=== PATIENT | male | born 1935 | race Caucasian/White ===

== ENCOUNTER 2016-07-22 23:28 | Inpatient (IN) | payer MEDICARE ==
[~2016-07-22] VITALS: Ht 182.9 cm; Wt 72.1 kg
[2016-07-23] MEDS ORDERED: DILAUDID 1 MG/ML AMP ONE (00:02)
[2016-07-23] MEDS ORDERED: MORPHINE 4 MG/ML SYR IV PRN (04:40)
[2016-07-23] MEDS ORDERED: MORPHINE 2 MG/ML SYR IV PRN (04:40)
[2016-07-23 04:45] VITALS: BP_SYST 137; RESP 18; TEMP 98.1; Ht 182.9 cm; Wt 72.1 kg
[2016-07-23] MEDS ORDERED: LEVOTHYROXINE 0.1 MG TAB PO SCH (07:00)
[2016-07-23 07:20] VITALS: BP_SYST 141; RESP 16; TEMP 97.7
[2016-07-23 12:09] VITALS: BP_SYST 131; RESP 16; TEMP 98.1
[2016-07-23] MEDS ORDERED: BISACODYL 10 MG SUPP RECTAL PRN (14:20)
[2016-07-23] MEDS ORDERED: POLYETHYLENE GLYCOL 17 GM PACKET PO PRN (14:20)
[2016-07-23] MEDS ORDERED: MAG HYDROX 30 ML UDC PO PRN (14:20)
[2016-07-23] MEDS ORDERED: ACETAMINOPHEN 650 MG/20.3 ML UDC PO PRN (14:20)
[2016-07-23] MEDS ORDERED: METOPROLOL XL 25 MG TAB PO SCH (14:20)
[2016-07-23] MEDS ORDERED: KCL CR 10 MEQ CAP PO ONE (14:20)
[2016-07-23 15:10] VITALS: BP_SYST 114; RESP 16; TEMP 97.6
[2016-07-23] MEDS: DIGOXIN 0.125 MG TAB PO SCH (16:08)
[2016-07-23] MEDS: SACCHA BOULARDII 250MG CAP PO SCH (16:08)
[2016-07-23] MEDS: Furosemide 40 MG TAB PO SCH ×2 (16:09→20:51)
[2016-07-23] MEDS: POLYETHYLENE GLYCOL 17 GM PACKET PO SCH (18:04)
[2016-07-23 20:19] VITALS: BP_SYST 115; RESP 18; TEMP 98.1
[2016-07-23] MEDS: KCL CR 10 MEQ TAB PO SCH (20:51)
[2016-07-23] MEDS: DOCUSATE SOD 100 MG CAP PO SCH (20:52)
[2016-07-23] MEDS: FAMOTIDINE 20 MG TAB PO SCH (20:52)
[2016-07-23] MEDS: METOPROLOL XL 25 MG TAB PO SCH (20:53)
[2016-07-23] MEDS ORDERED: METOPROLOL XL 50 MG TAB PO SCH (21:00)
[2016-07-23 23:09] VITALS: BP_SYST 118; RESP 18; TEMP 97.6
[2016-07-24 03:34] VITALS: BP_SYST 118; RESP 16; TEMP 97.6
[2016-07-24] MEDS: POLYETHYLENE GLYCOL 17 GM PACKET PO SCH (08:03)
[2016-07-24] MEDS: SACCHA BOULARDII 250MG CAP PO SCH (08:03)
[2016-07-24] MEDS: DOCUSATE SOD 100 MG CAP PO SCH ×2 (08:03→20:48)
[2016-07-24] MEDS: TAMSULOSIN 0.4 MG CAP PO SCH (08:03)
[2016-07-24] MEDS: Furosemide 40 MG TAB PO SCH ×2 (08:04→20:49)
[2016-07-24] MEDS: KCL CR 10 MEQ TAB PO SCH ×2 (08:04→20:48)
[2016-07-24] MEDS: FAMOTIDINE 20 MG TAB PO SCH ×2 (08:04→20:48)
[2016-07-24] MEDS: DIGOXIN 0.125 MG TAB PO SCH (08:07)
[2016-07-24 08:30] VITALS: BP_SYST 107; RESP 16; TEMP 97.8
[2016-07-24] MEDS: METOPROLOL XL 25 MG TAB PO SCH ×2 (09:00→20:49)
[2016-07-24] MEDS ORDERED: METOPROLOL XL 50 MG TAB PO SCH (09:00)
[2016-07-24 11:25] VITALS: BP_SYST 116; RESP 16; TEMP 97.8
[2016-07-24 11:27] VITALS: BP_SYST 116; RESP 16; TEMP 97.8
[2016-07-24 15:37] VITALS: BP_SYST 108; RESP 16; TEMP 98
[2016-07-24 18:53] VITALS: BP_SYST 112; RESP 16; TEMP 97.9
[2016-07-25] VITALS (7 sets, daily range): BP systolic 106–123; RESP 16–20; TEMP 97–98.9
[2016-07-25] MEDS: TAMSULOSIN 0.4 MG CAP PO SCH (08:37)
[2016-07-25] MEDS: DIGOXIN 0.125 MG TAB PO SCH (08:38)
[2016-07-25] MEDS: Furosemide 40 MG TAB PO SCH ×2 (08:38→21:19)
[2016-07-25] MEDS: METOPROLOL XL 25 MG TAB PO SCH ×2 (08:39→21:19)
[2016-07-25] MEDS: POLYETHYLENE GLYCOL 17 GM PACKET PO SCH (08:39)
[2016-07-25] MEDS: KCL CR 10 MEQ TAB PO SCH ×2 (08:39→21:19)
[2016-07-25] MEDS: SACCHA BOULARDII 250MG CAP PO SCH (08:39)
[2016-07-25] MEDS: FAMOTIDINE 20 MG TAB PO SCH ×2 (08:39→21:21)
[2016-07-25] MEDS: DOCUSATE SOD 100 MG CAP PO SCH ×2 (08:39→21:18)
[2016-07-26 04:30] VITALS: BP_SYST 120; RESP 18; TEMP 97.5
[2016-07-26 08:23] VITALS: BP_SYST 118; RESP 16; TEMP 97.5
[2016-07-26] MEDS: POLYETHYLENE GLYCOL 17 GM PACKET PO SCH (08:59)
[2016-07-26] MEDS: Furosemide 40 MG TAB PO SCH ×2 (09:00→20:26)
[2016-07-26] MEDS: KCL CR 20 MEQ TAB PO SCH ×2 (09:00→20:27)
[2016-07-26] MEDS: DOCUSATE SOD 100 MG CAP PO SCH ×2 (09:01→20:27)
[2016-07-26] MEDS: TAMSULOSIN 0.4 MG CAP PO SCH (09:02)
[2016-07-26] MEDS: METOPROLOL XL 50 MG TAB PO SCH ×2 (09:02→20:26)
[2016-07-26] MEDS: DIGOXIN 0.125 MG TAB PO SCH (09:02)
[2016-07-26] MEDS: FAMOTIDINE 20 MG TAB PO SCH ×2 (09:03→20:27)
[2016-07-26] MEDS: SACCHA BOULARDII 250MG CAP PO SCH (09:03)
[2016-07-26 12:40] VITALS: BP_SYST 122; RESP 16; TEMP 97.2
[2016-07-26 15:45] VITALS: BP_SYST 113; RESP 16; TEMP 97.5
[2016-07-26 19:21] VITALS: BP_SYST 109; RESP 16; TEMP 98.1
[2016-07-26 22:59] VITALS: BP_SYST 109; RESP 18; TEMP 98
[2016-07-27] MEDS ORDERED: SALINE FLUSH 10 ML FLUSH PRN (00:15)
[2016-07-27 03:06] VITALS: BP_SYST 119; RESP 16; TEMP 97.3
[2016-07-27] MEDS: SODIUM CHLORIDE 0.9% FLUSH BAG 500 ML IV SCH (05:57)
[2016-07-27] MEDS: SALINE FLUSH 10 ML FLUSH SCH ×2 (08:00→21:08)
[2016-07-27 08:21] VITALS: BP_SYST 130; RESP 20; TEMP 97.9
[2016-07-27] MEDS: SACCHA BOULARDII 250MG CAP PO SCH (08:55)
[2016-07-27] MEDS: FAMOTIDINE 20 MG TAB PO SCH ×2 (08:55→21:07)
[2016-07-27] MEDS: DIGOXIN 0.125 MG TAB PO SCH (08:55)
[2016-07-27] MEDS: KCL CR 20 MEQ TAB PO SCH ×2 (08:56→21:08)
[2016-07-27] MEDS: DOCUSATE SOD 100 MG CAP PO SCH ×2 (08:56→21:08)
[2016-07-27] MEDS: METOPROLOL XL 50 MG TAB PO SCH ×2 (08:56→21:07)
[2016-07-27] MEDS: TAMSULOSIN 0.4 MG CAP PO SCH (08:56)
[2016-07-27] MEDS: Furosemide 40 MG TAB PO SCH ×2 (08:56→21:08)
[2016-07-27] MEDS: POLYETHYLENE GLYCOL 17 GM PACKET PO SCH (08:58)
[2016-07-27 12:02] VITALS: BP_SYST 136; RESP 20; TEMP 97.3
[2016-07-27 15:35] VITALS: BP_SYST 120; RESP 16; TEMP 97.3
[2016-07-27 19:56] VITALS: BP_SYST 118; RESP 16; TEMP 97.7
[2016-07-27 23:35] VITALS: BP_SYST 125; RESP 16; TEMP 97.2
[2016-07-28 03:19] VITALS: BP_SYST 117; RESP 16; TEMP 97.2
[2016-07-28] MEDS: SODIUM CHLORIDE 0.9% FLUSH BAG 500 ML IV SCH (06:00)
[2016-07-28 07:15] VITALS: BP_SYST 139; RESP 16; TEMP 97.8
[2016-07-28] MEDS: POLYETHYLENE GLYCOL 17 GM PACKET PO SCH (08:03)
[2016-07-28] MEDS: DOCUSATE SOD 100 MG CAP PO SCH ×2 (08:03→21:41)
[2016-07-28] MEDS: METOPROLOL XL 50 MG TAB PO SCH ×2 (08:03→21:40)
[2016-07-28] MEDS: TAMSULOSIN 0.4 MG CAP PO SCH (08:04)
[2016-07-28] MEDS: DIGOXIN 0.125 MG TAB PO SCH (08:04)
[2016-07-28] MEDS: KCL CR 20 MEQ TAB PO SCH ×2 (08:04→21:40)
[2016-07-28] MEDS: FAMOTIDINE 20 MG TAB PO SCH ×2 (08:04→21:40)
[2016-07-28] MEDS: SACCHA BOULARDII 250MG CAP PO SCH (08:04)
[2016-07-28] MEDS: Furosemide 40 MG TAB PO SCH ×2 (08:09→21:40)
[2016-07-28] MEDS: SALINE FLUSH 10 ML FLUSH SCH ×2 (08:10→21:38)
[2016-07-28 11:37] VITALS: BP_SYST 102; RESP 16; TEMP 97.5
[2016-07-28 19:53] VITALS: BP_SYST 116; RESP 20; TEMP 97.7
[2016-07-28 22:45] VITALS: BP_SYST 134; RESP 22; TEMP 97.6
[2016-07-29 04:35] VITALS: BP_SYST 126; RESP 22; TEMP 97.3
[2016-07-29] MEDS: SODIUM CHLORIDE 0.9% FLUSH BAG 500 ML IV SCH (06:00)
[2016-07-29 07:16] VITALS: BP_SYST 116; RESP 18; TEMP 97.1
[2016-07-29] MEDS: SALINE FLUSH 10 ML FLUSH SCH (08:00)
[2016-07-29] MEDS: POLYETHYLENE GLYCOL 17 GM PACKET PO SCH (08:43)
[2016-07-29] MEDS: FAMOTIDINE 20 MG TAB PO SCH (08:43)
[2016-07-29] MEDS: SACCHA BOULARDII 250MG CAP PO SCH (08:43)
[2016-07-29] MEDS: METOPROLOL XL 50 MG TAB PO SCH (08:44)
[2016-07-29] MEDS: DOCUSATE SOD 100 MG CAP PO SCH (08:44)
[2016-07-29] MEDS: KCL CR 20 MEQ TAB PO SCH (08:44)
[2016-07-29] MEDS: TAMSULOSIN 0.4 MG CAP PO SCH (08:44)
[2016-07-29] MEDS: Furosemide 40 MG TAB PO SCH (08:44)
[2016-07-29] MEDS: DIGOXIN 0.125 MG TAB PO SCH (08:45)
[2016-07-29 10:06] VITALS: BP_SYST 116; RESP 18; TEMP 97.1
== END 2016-07-29 11:02 | DRG 552 ==
LOC: ER 23:28 → EMR 23:29 → 2NO 07-23 04:35 → ENPENDDIS 07-23 16:22 → OBSVTOIN 07-23 16:22
PROVIDERS: ADMIT Internal Medicine; ATTEND Internal Medicine
CPT/HCPCS: 36415; 72072; 72100; 72146; 72148; 80053; 80162; 83735; 84439; 84443; 85025; 85610; 85730; 96372